=== PATIENT | female | born 1980 | race American Indian/Alaskan Native ===

== ENCOUNTER 2016-08-02 09:35 | Emergency (ER) | payer MEDICAID ==
[2016-08-02 10:57] LABS: BASOPHIL % 0.4 % (0-2); PLATELET COUNT 274 x10^3mcL (130-400); RED CELL DISTRIBUTION WIDTH 12.9 % (11.5-14.5)
[2016-08-02 12:34] VITALS: BP 121/76
== END 2016-08-02 12:34 | disposition home or self-care (01) ==
LOC: ED 09:35
PROVIDERS: Emergency Medicine
DX: O20.0 Threatened abortion (principal); Z3A.16 16 weeks gestation of pregnancy

== ENCOUNTER 2018-11-24 19:45 | Emergency (ER) | payer OTHER ==
[~2018-11-24] VITALS: Ht 167.6 cm; Wt 77.1 kg
[2018-11-24 19:48] VITALS: Ht 167.6 cm; Wt 77.1 kg
[2018-11-24 20:18] LABS: BASOPHIL % 0.3 % (0-2); PLATELET COUNT 301 x10^3mcL (130-400); RED CELL DISTRIBUTION WIDTH 13.4 % (11.5-14.5)
[2018-11-24 20:34] LABS: CALCIUM 8.7 mg/dL (8.5-10.1); CARBON DIOXIDE 28.6 mmol/L (21-32); CHLORIDE SERUM 107 mmol/L (98-107); CREATININE SERUM 0.6 mg/dL (0.6-1.0); GFR1 > 60 mL/min; GLUCOSE SERUM 115 mg/dL (74-106); POTASSIUM SERUM 3.5 mmol/L (3.5-5.1); SODIUM SERUM 142 mmol/L (136-145)
[2018-11-24 20:39] LABS: ALBUMIN 3.8 g/dL (3.4-5.0); ALKALINE PHOSPHATASE 40 U/L (46-116); ALT/SGPT 21 U/L (14-59); AST/SGOT 11 U/L (15-37); BILIRUBIN TOTAL 0.3 mg/dL (0.20-1.00); LIPASE 250 IU/L (73-393); TOTAL PROTEIN, SERUM 7.2 g/dL (6.4-8.2)
[2018-11-24 20:54] VITALS: BP 105/81
== END 2018-11-24 20:54 | disposition home or self-care (01) ==
LOC: ED 19:45
PROVIDERS: Emergency Medicine
DX: M54.5 Low back pain (principal); R10.13 Epigastric pain
CPT/HCPCS: 36415

== ENCOUNTER 2019-04-02 23:11 | Emergency (ER) | payer OTHER ==
[~2019-04-02] VITALS: Ht 170.2 cm; Wt 73.6 kg
[2019-04-02 23:32] VITALS: Ht 170.2 cm; Wt 73.6 kg
[2019-04-03 00:29] VITALS: BP 105/50
== END 2019-04-03 00:29 | disposition home or self-care (01) ==
LOC: ED 23:11
DX: M54.5 Low back pain (principal)

== ENCOUNTER 2019-12-07 23:17 | Emergency (ER) | payer OTHER ==
[2019-12-07 23:35] VITALS: Ht 170.2 cm
[2019-12-08 00:58] VITALS: BP 97/53
== END 2019-12-08 00:58 | disposition home or self-care (01) ==
LOC: ED 23:17
DX: S39.012A Strain of muscle, fascia and tendon of lower back, initial encounter (principal); K21.9 Gastro-esophageal reflux disease without esophagitis; X58.XXXA Exposure to other specified factors, initial encounter; Y93.89 Activity, other specified; Y92.89 Other specified places as the place of occurrence of the external cause; Y99.8 Other external cause status
CPT/HCPCS: J1885

== ENCOUNTER 2019-12-15 23:55 | Emergency (ER) | payer OTHER ==
[~2019-12-15] VITALS: Ht 170.2 cm; Wt 72.1 kg
[2019-12-16 00:06] VITALS: Ht 170.2 cm; Wt 72.1 kg
[2019-12-16 02:20] VITALS: BP 110/71
== END 2019-12-16 02:20 | disposition home or self-care (01) ==
LOC: ED 23:55
DX: S39.012A Strain of muscle, fascia and tendon of lower back, initial encounter (principal); X58.XXXA Exposure to other specified factors, initial encounter; Y93.89 Activity, other specified; Y92.89 Other specified places as the place of occurrence of the external cause; Y99.8 Other external cause status

== ENCOUNTER 2020-04-26 19:31 | Emergency (ER) | payer OTHER, SELFPAY ==
[~2020-04-26] VITALS: Ht 170.2 cm; Wt 68.0 kg
[2020-04-26 19:34] VITALS: Ht 170.2 cm; Wt 68.0 kg
[2020-04-26 20:34] VITALS: BP 124/99
== END 2020-04-26 20:34 | disposition home or self-care (01) ==
LOC: ED 19:31
DX: U07.1 COVID-19 (principal); Z98.890 Other specified postprocedural states
CPT/HCPCS: U0003

== ENCOUNTER 2020-05-08 21:48 | Emergency (ER) | payer OTHER, SELFPAY ==
[~2020-05-08] VITALS: Ht 170.2 cm; Wt 68.0 kg
[2020-05-08 21:51] VITALS: Ht 170.2 cm; Wt 68.0 kg
[2020-05-08 23:32] LABS: BASOPHIL % 0.5 % (0.2-1.3); PLATELET COUNT 375 x10^3mcL (179-408); RED CELL DISTRIBUTION WIDTH 13.1 % (12.3-17.7)
[2020-05-08 23:50] LABS: CALCIUM 8.7 mg/dL (8.5-10.1); CARBON DIOXIDE 30.2 mmol/L (21-32); CHLORIDE SERUM 99 mmol/L (98-107); CREATININE SERUM 0.7 mg/dL (0.6-1.0); GFR1 > 60 mL/min; GLUCOSE SERUM 97 mg/dL (74-106); POTASSIUM SERUM 3.3 mmol/L (3.5-5.1); SODIUM SERUM 136 mmol/L (136-145)
[2020-05-08 23:54] LABS: ALKALINE PHOSPHATASE 42 U/L (46-116); ALT/SGPT 30 U/L (14-59); AST/SGOT 13 U/L (15-37); BILIRUBIN TOTAL 0.28 mg/dL (0.20-1.00); LIPASE 233 IU/L (73-393); TOTAL PROTEIN, SERUM 7.7 g/dL (6.4-8.2)
[2020-05-09 02:46] VITALS: BP 119/79
== END 2020-05-09 02:46 | disposition home or self-care (01) ==
LOC: ED 21:48
PROVIDERS: Emergency Medicine
DX: N73.9 Female pelvic inflammatory disease, unspecified (principal); N76.0 Acute vaginitis
CPT/HCPCS: 87491; 87591; J0696; J2001